=== PATIENT | female | born 1955 | race Caucasian/White ===

== ENCOUNTER 2017-08-09 08:00 | Outpatient (CLI) | payer MEDICARE, MEDICAID ==
[2017-08-09 19:13] LABS: BASOPHILS # (AUTO) 0.1 10^3/uL (0.0-0.1); BASOPHILS % (AUTO) 0.7 %; EOSINOPHILS # (AUTO) 0.2 10^3/uL (0.0-0.7); EOSINOPHILS % (AUTO) 2.3 %; HCT - HEMATOCRIT 43.1 % (37.0-47.0); HGB - HEMOGLOBIN 14.6 g/dL (12.0-16.0); LYMPHOCYTES # (AUTO) 2.2 10^3/uL (1.5-3.5); MEAN CORPUSCULAR HGB CONC 33.7 g/dL (32.0-36.0); MEAN CORPUSCULAR VOLUME 91.9 fL (81.0-99.0); MEAN PLATELET VOLUME 8.1 fL (7.9-10.8); MONOCYTES # (AUTO) 0.5 10^3/uL (0.0-1.0); MONOCYTES % (AUTO) 6.8 %; NEUTROPHILS # (AUTO) 4.7 10^3/uL (1.5-6.6); NEUTROPHILS % (AUTO) 61.2 %; NUCLEATED RED BLOOD CELLS AUTO 0.1 /100WBC; RED BLOOD COUNT 4.69 10^6/uL (4.20-5.40); RED CELL DISTRIBUTION WIDTH 12.8 % (12.0-15.0); UNCORRECTED WHITE BLOOD COUNT 7.7 x10^3/uL; WHITE BLOOD COUNT 7.7 x10^3/uL (4.8-10.8)
[2017-08-09 19:46] LABS: ALBUMIN/GLOBULIN RATIO 1.4 (1.0-2.2); BILIRUBIN,TOTAL 0.9 mg/dL (0.2-1.0); BUN - BLOOD UREA NITROGEN 12 mg/dL (6-20); CALCIUM 9.7 mg/dL (8.5-10.3); CARBON DIOXIDE - CO2 27 mmol/L (21-32); CHLORIDE 104 mmol/L (101-111); CREATININE 0.6 mg/dL (0.4-1.0); GFR - MDRD 102 (>89); GLUCOSE 95 mg/dL (70-100); POTASSIUM 4.1 mmol/L (3.5-5.0); SODIUM 139 mmol/L (135-145); TOTAL PROTEIN 7.8 g/dL (6.7-8.2)
[2017-08-10 19:04] LABS: BILIRUBIN,URINE NEGATIVE (NEGATIVE); PH,URINE 6.5 PH (5.0-7.5)
[2017-08-10 19:53] LABS: UR CULTURE IF IND NOT INDICATED; WBC,URINE 0-3 /HPF (0-5)
== END 2017-08-09 08:01 | disposition home or self-care (01) ==
LOC: LAB.WCP 08:00
PROVIDERS: ATTEND Family Medicine
DX: F19.10 Other psychoactive substance abuse, uncomplicated (principal); F31.9 Bipolar disorder, unspecified; R32 Unspecified urinary incontinence
CPT/HCPCS: 36415; 80053; 81001; 84443; 85025; 87086

== ENCOUNTER 2018-11-04 16:33 | Emergency (ER) | payer MEDICARE, MEDICAID ==
[2018-11-04 16:44] VITALS: BP 148/72
--- NOTE | 2018-11-04 16:59 | ED Physician Documentation ---
History of Present Illness - Stated complaint Stated Complaint: MED REFILL - Chief complaint Chief Complaint: General - History obtained from History obtained from: Patient - History of Present Illness Timing: Yesterday (She ran out of her ADD medication and needs a refill. She has an important function tomorrow and feels like she will be nonfunctional without a refill. The psychiatrist office is closed for the .) Review of Systems Constitutional: reports: Reviewed and negative Cardiac: reports: Reviewed and negative Respiratory: reports: Reviewed and negative Psychiatric: denies: Depressed, Suicidal, Homicidal PD PAST MEDICAL HISTORY - Past Medical History Respiratory: COPD Psych: Depression, Anxiety, Post traumatic stress disorder, Other - Past Surgical History General: Colonoscopy /[employer]: section - Present Medications Home Medications: Ambulatory Orders Medication Instructions Recorded Confirmed Albuterol [Ventolin Hfa] 2 puffs PO TID 11/22/14 11/22/14 Beclomethasone Dipropionate [Qvar] 2 puffs PO BID 11/22/14 11/22/14 Omeprazole [Prilosec] 20 mg PO DAILY 11/22/14 11/22/14 Aripiprazole [Abilify] 1 tab PO DAILY 11/04/18 11/04/18 Dextroamphetamine/Amphetamine 10 mg PO DAILY #5 cap.er.24h 11/04/18 [Dextroamp-Amphet ER 10 mg Cap] Dextroamphetamine/Amphetamine 1 tab PO DAILY 11/04/18 11/04/18 [Dextroamp-Amphetamin 10 mg Tab] buPROPion [Wellbutrin Sr] 1 tab PO BID 11/04/18 11/04/18 - Allergies Allergies/Adverse Reactions: Allergies Allergy/AdvReac Type Severity Reaction Status Date / Time No Known Drug Allergies Allergy Verified 11/04/18 16:44 - Social History Does the pt smoke?: Yes Smoking Status: Current every day smoker Does the pt drink ETOH?: No Does the pt have substance abuse?: Yes - Immunizations Immunizations are current?: Yes PD ED PE NORMAL - Vitals Vital signs reviewed: Yes - General General: Alert and oriented X 3, No acute distress - Derm Derm: Normal color, Warm and dry, No rash - Neuro Neuro: Alert and oriented X 3, Normal speech - Psych Psych: Normal mood, Normal affect Results - Vitals Vitals: Vital Signs - 24 hr 11/04/18 16:40 Temperature 36.5 C Heart Rate 87 Respiratory 16 Rate Blood Pressure 148/72 H O2 Saturation 98 Oxygen O2 Source Room air Departure - Departure Disposition: 01 Home, Self Care Clinical Impression: Medication refill ADD (attention deficit disorder) Qualifiers: Hyperactivity presence: present Attention deficit-hyperactivity disorder type: unspecified Qualified Code(s): F90.9 - Attention-deficit hyperactivity disorder, unspecified type Condition: Good Record reviewed to determine appropriate education?: Yes Prescriptions: Dextroamphetamine/Amphetamine [Dextroamp-Amphet ER 10 mg Cap] 10 mg PO DAILY #5 cap.er.24h Comments: As discussed, all further refills need to come from your primary care physician or psychiatrist. Return for new or worsening issues. Your blood pressure was elevated today on check into the emergency department. This does not mean that you have hypertension, it is a common phenomenon to come to the emergency department and have elevated blood pressure. I recommend that you see your primary care physician within the week to have it rechecked when you are feeling better.
== END 2018-11-04 17:01 | disposition home or self-care (01) ==
LOC: ED 16:33
DX: F90.9 Attention-deficit hyperactivity disorder, unspecified type (principal); R03.0 Elevated blood-pressure reading, without diagnosis of hypertension; F17.200 Nicotine dependence, unspecified, uncomplicated
CPT/HCPCS: 99283

== ENCOUNTER 2019-02-02 10:36 | Outpatient (CLI) | payer MEDICARE, OTHER ==
--- NOTE | 2019-02-02 16:12 | CT Report ---
Reason: PERSONAL HISTORY OF NICOTINE DEPENDENCE Procedure Date: 02/02/2019 Accession Number: [id number] / [id number] Procedure: CT - Low Dose Lung Cancer Screen CPT Code: FULL RESULT: EXAM CT LUNG SCREEN EXAM DATE: 02/02/2019 11:21 AM. HISTORY: 63-year-old patient with [id number]-[id number] smoking history. Currently smoking: Yes. COMPARISON: None. TECHNIQUE: CT examination of the entire thorax without contrast was performed using low-dose technique. Thin section coronal, axial, sagittal and MIP axial images were obtained. In accordance with CT protocol optimization, one or more of the following dose reduction techniques were utilized for this exam: automated exposure control, adjustment of mA and/or KV based on patient size, or use of iterative reconstructive technique. FINDINGS: Nodules: Right upper lobe: 1. 2 mm lateral right upper lobe nodule (series 4, image 31). 2. 2 mm nodule peripheral right upper lobe (series 4, image 32). 3. 2 mm nodule density right upper lobe (series 4, image 47). 4. Small nodule with peripheral groundglass opacity measuring 3 mm (series 4, image 36). Right middle lobe: None. Right lower lobe: None. Left upper lobe: 1. 3 mm peripheral nodular density (series 4, image 33). 2. 2 mm nodular density left upper lobe peripherally (series 4, image 43). Left lower lobe: None. Emphysema: None. Pleura: Unremarkable. Aorta: No aortic aneurysm evident. Mild atherosclerotic calcification present. Mediastinum: Unremarkable. Coronary calcifications: Mild LAD vascular calcification. Other pulmonary findings: None. Other extrapulmonary findings: None. IMPRESSION: Lung-RADS ASSESSMENT CATEGORY: 2 - benign appearance or behavior, less than 1% probability of malignancy. Several tiny pulmonary nodules measuring no more than 3 mm. RECOMMENDATION: Recommended follow up based on Lung-RADS guidelines. RADIA
== END 2019-02-02 10:37 | disposition home or self-care (01) ==
LOC: DI 10:36
PROVIDERS: ATTEND Internal Medicine
DX: Z12.2 Encounter for screening for malignant neoplasm of respiratory organs (principal); F17.210 Nicotine dependence, cigarettes, uncomplicated

== ENCOUNTER 2021-04-24 09:58 | Outpatient (CLI) | payer OTHER ==
--- NOTE | 2021-04-24 12:28 | XRAY Report ---
PROCEDURE: Chest 2 View X-Ray INDICATIONS: COUGH TECHNIQUE: 2 view(s) of the chest. COMPARISON: CT chest without contrast, 02/02/2019. FINDINGS: Surgical changes and devices: None. Lungs and pleura: No pleural effusions or pneumothorax. Lungs are clear. Mediastinum: Mediastinal contours are normal. Heart size is normal. Bones and chest wall: No suspicious bony abnormalities. Soft tissues appear unremarkable. IMPRESSION: No acute cardiopulmonary disease. Reviewed by: Joshua Zuniga MD on 04/24/2021 12:27 PM PDT Approved by: Joshua Zuniga MD on 04/24/2021 12:27 PM PDT Station ID: [id number]
== END 2021-04-24 09:59 | disposition home or self-care (01) ==
LOC: DI.N 09:58
PROVIDERS: ATTEND Physician Assistant
DX: R05 Cough (principal); R06.02 Shortness of breath; J44.9 Chronic obstructive pulmonary disease, unspecified; F17.290 Nicotine dependence, other tobacco product, uncomplicated

== ENCOUNTER 2021-08-04 16:36 | Outpatient (CLI) | payer OTHER | END 2021-08-04 16:37 | disposition home or self-care (01) | LOC: COV 16:36 | PROVIDERS: ATTEND Family Medicine | DX: U07.1 COVID-19 (principal) ==

== ENCOUNTER 2021-11-27 08:00 | Outpatient (CLI) | payer OTHER ==
--- NOTE | 2021-11-27 17:14 | XRAY Report ---
PROCEDURE: Hand 3 View LT INDICATIONS: CONTUSION OF LEFT MIDDLE FINGER TECHNIQUE: 3 views of the hand(s) acquired. COMPARISON: None FINDINGS: Bones: No fractures or dislocations. No suspicious bony lesions. Soft tissues: No suspicious soft tissue calcifications. IMPRESSION: No visualized acute fracture or dislocation. However, occult injury cannot be excluded. Recommend elida rt interval imaging follow-up in 7-10 days as clinically indicated for additional evaluation. Reviewed by: Jennifer Singleton MD on 11/27/2021 5:13 PM PST Approved by: Jennifer Singleton MD on 11/27/2021 5:13 PM [facility] Station ID: [id number]
== END 2021-11-27 23:59 | disposition home or self-care (01) ==
LOC: DI.N 08:00
PROVIDERS: ATTEND Physician Assistant
DX: S60.032A Contusion of left middle finger without damage to nail, initial encounter (principal)

== ENCOUNTER 2021-12-05 09:42 | Outpatient (CLI) | payer OTHER ==
--- NOTE | 2021-12-05 12:07 | XRAY Report ---
PROCEDURE: Finger(s) LT min, x-ray INDICATIONS: CONTUSION OF LEFT MIDDLE FINGER TECHNIQUE: AP hand, 2 views of the left third finger(s) acquired. COMPARISON: 11/27/2021 FINDINGS: Bones: No fractures or dislocations. No suspicious bony lesions. Osteopenia and fracture deformity of distal radius noted. Soft tissues: No suspicious soft tissue calcifications. IMPRESSION: 1. No acute fracture or foreign body 2. Osteopenia and old distal radial fracture deformity, stable Reviewed by: Rod Escobar MD on 12/05/2021 11:05 AM [facility] Approved by: Rod Escobar MD on 12/05/2021 11:05 AM [facility] Station ID: [id number]
== END 2021-12-05 23:59 | disposition home or self-care (01) ==
LOC: DI.N 09:42
PROVIDERS: ATTEND Family Medicine
DX: S60.032D Contusion of left middle finger without damage to nail, subsequent encounter (principal); M85.88 Other specified disorders of bone density and structure, other site; Z87.81 Personal history of (healed) traumatic fracture

== ENCOUNTER 2022-04-22 14:08 | Outpatient (CLI) | payer OTHER ==
--- NOTE | 2022-04-22 16:20 | XRAY Report ---
PROCEDURE: Chest 2 View X-Ray INDICATIONS: COUGH TECHNIQUE: 2 view(s) of the chest. COMPARISON: None. FINDINGS: Surgical changes and devices: None. Lungs and pleura: No pleural effusions or pneumothorax. Lungs are clear. Mediastinum: Mediastinal contours are normal. Heart size is normal. Bones and chest wall: No suspicious bony abnormalities. Soft tissues appear unremarkable. IMPRESSION: No acute cardiopulmonary process demonstrated radiographically. Reviewed by: Robi Hale MD on 04/22/2022 4:19 PM PDT Approved by: Robi Hale MD on 04/22/2022 4:19 PM PDT Station ID: [id number]
== END 2022-04-22 14:09 | disposition home or self-care (01) ==
LOC: DI.N 14:08
PROVIDERS: ATTEND Student in an Organized Health Care Education/Training Program
DX: R05.9 Cough, unspecified (principal)

== ENCOUNTER 2022-05-07 08:06 | Outpatient (CLI) | payer OTHER ==
--- NOTE | 2022-05-07 10:10 | CT Report ---
PROCEDURE: Low Dose Lung Cancer Screen INDICATIONS: PULMONARY NODULE TECHNIQUE: Noncontrast low-dose images were acquired from the pulmonary apices to the posterior costophrenic ang les. Multiplanar MIP reformats were then acquired. For radiation dose reduction, the following was used: automated exposure control, adjustment of mA and/or kV according to patient size. COMPARISON: 02/02/2019 FINDINGS: Image quality: Good. Slight respiratory motion at the lung bases.. Lungs and pleura: Several scattered groundglass lung nodules, posterior right upper lobe, 4/90 measu ring 5 mm, lateral right upper lobe, 4/75 fissuring 3 mm, anterior right upper lobe, 4/122 measuring 2 mm, posterior lateral left upper lobe, 4/81, 3 mm. No other larger nodules or suspicious masses. rways demonstrate mild perihilar bronchial wall thickening. Mild upper lobe emphysematous changes. Th ere is mucus in the left main bronchus. No alveolar consolidations or acute opacities. No pleural eff usion or pleural plaquing. Mediastinum: Heart size is normal. No pericardial effusion. Minor coronary artery calcification. No mediastinal adenopathy by size criteria. Thoracic aorta and central pulmonary arteries are normal i n size. Mild aortic arch calcification. Esophagus is normal in caliber. No hiatal hernia. Bones and chest wall: No suspicious bony lesions. No vertebral body compression fractures. No axil fortino or supraclavicular adenopathy by size criteria. The left thyroid lobe is enlarged. The right is normal. Abdomen: Visualized upper abdomen solid organs and bowel loops appear normal in the absence of contr ast. IMPRESSION: 1. Relatively stable bilateral upper lobe pulmonary nodules as measured on both images during today's review. 2. Lung RADS category 2, benign. 3. Continue annual screening as long as patient meets established criteria. 4. Mild left-sided thyromegaly, stable compared to the prior study. Reviewed by: Courtney Lopez MD on 05/07/2022 10:09 AM PDT Approved by: Courtney Lopez MD on 05/07/2022 10:09 AM PDT Station ID: [id number]
== END 2022-05-07 08:07 | disposition home or self-care (01) ==
LOC: DI 08:06
PROVIDERS: ATTEND Student in an Organized Health Care Education/Training Program
DX: Z12.2 Encounter for screening for malignant neoplasm of respiratory organs (principal); R91.8 Other nonspecific abnormal finding of lung field; E01.0 Iodine-deficiency related diffuse (endemic) goiter

== ENCOUNTER 2022-10-14 14:07 | Outpatient (CLI) | payer MEDICARE, OTHER, MEDICAID ==
--- NOTE | 2022-10-14 20:54 | DEXA Report ---
PROCEDURE: Dexa Spine and/or Hip INDICATIONS: POSTMENOPAUSAL TECHNIQUE: Dual energy x-ray absorptiometry (DXA) was performed on a [employer]. Regions measur ed are the AP Spine, femoral neck, and if needed forearm. COMPARISON: None. FINDINGS: Lumbar Spine: Bone Mineral Density 1.084 g/cm/cm,T score -0.8. Left Femoral Neck: Bone Mineral Density 0.810 g/cm/cm, T score -1.6. Left Hip: Bone Mineral Density 0.825 g/cm/cm,T score -1.4. (T score greater or equal to -1.0: NORMAL) (T score from -1.1 to -2.4: OSTEOPENIA) (T score less than or equal to -2.5 to: OSTEOPOROSIS) Impression: Osteopenia. Patients with diagnosis of osteoporosis or osteopenia should have regular bone mineral density assess ment. For those eligible for Medicare, routine testing is allowed once every 2 years. Testing frequ ency can be increased for patients who have rapidly progressing disease or for those who are receivin g medical therapy to restore bone mass. Reviewed by: Pablo Garza MD on 10/14/2022 8:52 PM PST Approved by: Pablo Garza MD on 10/14/2022 8:52 PM PST Station ID: [id number]
== END 2022-10-14 14:08 | disposition home or self-care (01) ==
LOC: DI 14:07
PROVIDERS: ATTEND Nurse Practitioner
DX: M85.89 Other specified disorders of bone density and structure, multiple sites (principal); Z78.0 Asymptomatic menopausal state

== ENCOUNTER 2022-10-14 14:08 | Outpatient (CLI) | payer MEDICARE, MEDICAID ==
--- NOTE | 2022-10-22 11:37 | Mammography Report ---
BILATERAL DIGITAL SCREENING MAMMOGRAM 3D/2D: 10/14/2022 CLINICAL: Routine screening. No prior exams were available for comparison. Both breasts are heterogeneously dense, which may obscure small masses (category c / 51-75% glandular tissue). No significant masses, calcifications, or other findings are seen in either breast. IMPRESSION: NEGATIVE There is no mammographic evidence of malignancy. A 1 year screening mammogram is recommended. Based on the Tyrer Cuzick model (a risk assessment model) the patients lifetime risk is 6.4% and her 10 year risk is 3.1%. According to the ACR, ACS, and NCCN guidelines, an annual breast MRI exam mariam g with mammogram is recommended if the patients lifetime risk is 20% or greater. This exam was interpreted at Station ID: [id number]. NOTE: For mammograms, a report in lay terms will be sent to the patient. Approximately 15% of breast malignancies will not be visualized mammographically. In the management of a palpable breast mass, a negative mammogram must not discourage biopsy of a clinically suspicious lesion. Electronically Signed By: Ernst Randolph M.D. slc/:10/21/2022 17:20:56 ACR BI-RADS Category 1: Negative 3341F PARENCHYMAL PATTERN: (D) - The breast(s) demonstrate(s) heterogeneously dense fibroglandular fermin hawkins. BI-RADS CATEGORY: (1) - 1 RECOMMENDATION: (ANNUAL) - Recommend routine annual screening mammography. [id number] 1 year screening LATERALITY: (B)
== END 2022-10-14 14:09 | disposition home or self-care (01) ==
LOC: DI 14:08
PROVIDERS: ATTEND Nurse Practitioner
DX: Z12.31 Encounter for screening mammogram for malignant neoplasm of breast (principal)

== ENCOUNTER 2022-11-08 08:00 | Outpatient (CLI) | payer MEDICARE, MEDICAID ==
[2022-11-08 11:49] LABS: BASOPHILS % (AUTO) 0.5 %; EOSINOPHILS # (AUTO) 0.3 10^3/uL (0.0-0.7); EOSINOPHILS % (AUTO) 4.1 %; HCT - HEMATOCRIT 44.3 % (37.0-47.0); HGB - HEMOGLOBIN 14.7 g/dL (12.0-16.0); LYMPHOCYTES # (AUTO) 2.1 10^3/uL (1.5-3.5); LYMPHOCYTES % (AUTO) 33.5 %; MEAN CORPUSCULAR HEMOGLOBIN 30.1 pg (27.0-31.0); MEAN CORPUSCULAR HGB CONC 33.2 g/dL (32.0-36.0); MEAN CORPUSCULAR VOLUME 90.8 fL (81.0-99.0); MEAN PLATELET VOLUME 9.2 fL (7.9-10.8); MONOCYTES # (AUTO) 0.7 10^3/uL (0.0-1.0); MONOCYTES % (AUTO) 10.6 %; NEUTROPHILS # (AUTO) 3.2 10^3/uL (1.5-6.6); PLT - PLATELET COUNT 352 10^3/uL (130-450); RED BLOOD COUNT 4.88 10^6/uL (4.20-5.40); RED CELL DISTRIBUTION WIDTH 12.6 % (12.0-15.0); WHITE BLOOD COUNT 6.4 x10^3/uL (4.8-10.8)
[2022-11-08 12:39] LABS: THYROID STIMULATING HORMONE 1.5 uIU/mL (0.34-5.60)
[2022-11-08 14:00] LABS: ALBUMIN 3.9 g/dL (3.2-5.5); ALBUMIN/GLOBULIN RATIO 1.2 (1.0-2.2); ALKALINE PHOSPHATASE 64 IU/L (42-121); ALT ALANINE AMINOTRANSFERASE 21 IU/L (10-60); AST ASPARTATE AMINOTRANSFERASE 20 IU/L (10-42); BILIRUBIN,TOTAL 0.6 mg/dL (0.2-1.0); BUN - BLOOD UREA NITROGEN 14 mg/dL (6-20); CALCIUM 9.3 mg/dL (8.5-10.3); CARBON DIOXIDE - CO2 27 mmol/L (21-32); CHLORIDE 103 mmol/L (101-111); CHOL/HDL RATIO 5.2 (<4.4); CHOLESTEROL 241 mg/dL; CREATININE 0.6 mg/dL (0.4-1.0); GFR - MDRD 100 (>89); GLUCOSE 93 mg/dL (70-100); HDL CHOLESTEROL 46 mg/dL; LDL CHOLESTEROL,CALCULATED 170 mg/dL; LDL/HDL RATIO 3.7 (<4.4); POTASSIUM 4.1 mmol/L (3.5-5.0); SODIUM 138 mmol/L (135-145); TOTAL PROTEIN 7.2 g/dL (6.7-8.2); TRIGLYCERIDES 126 mg/dL; VLDL CHOLESTEROL 25 mg/dL
== END 2022-11-08 08:01 | disposition home or self-care (01) ==
LOC: LAB.N 08:00
PROVIDERS: ATTEND Nurse Practitioner
DX: J44.9 Chronic obstructive pulmonary disease, unspecified (principal); Z13.220 Encounter for screening for lipoid disorders; F41.9 Anxiety disorder, unspecified
CPT/HCPCS: 36415; 80053; 80061; 83721; 84443; 85025

== ENCOUNTER 2023-06-02 11:49 | Outpatient (CLI) | payer MEDICARE, MEDICAID ==
--- NOTE | 2023-06-02 14:59 | CT Report ---
PROCEDURE: Low Dose Lung Cancer Screen INDICATIONS: NICOTINE ABUSE TECHNIQUE: A CT scan of the chest was performed. Intravenous contrast media was not administered. Images were re corded and evaluated at appropriate window settings. Reformats: axial MIP of the chest, coronal and s agittal. For radiation dose reduction, the following was used: automated exposure control, adjustment of mA and/or kV according to patient size. COMPARISON: CT chest, 05/07/2022. FINDINGS: Image quality: Excellent. Lungs and pleura: Small nodules are unchanged in size. Reference nodules are listed in following: Nodule 1: 4 mm; right middle lobe; series 4 image 130. Nodule 2: 4 mm; right major fissure; series 4 image 25. No pleural effusions. No pneumothorax. No suspicious pulmonary nodules which require follow up. Mediastinum: Heart size is normal. No pericardial effusion. Moderate coronary calcification. No large vessel abnormality. No mediastinal adenopathy by size criteria. Small hiatal hernia. Chest wall and lower neck: Thyroid is enlarged and heterogeneous but unchanged. No axillary or suprac lavicular adenopathy by size. Bones: No aggressive osseous abnormality. Upper Abdomen: Unremarkable. IMPRESSION: 1. Stable lung nodules. Lung RADs: 2 - Benign. Recommendation: Continue annual screening in 12 Months with LDCT. 2. Enlarged thyroid gland with heterogeneous attenuation, unchanged. Reviewed by: Joshua Zuniga MD on 06/02/2023 2:58 PM PDT Approved by: Joshua Zuniga MD on 06/02/2023 2:58 PM PDT Station ID: [id number]
== END 2023-06-02 11:50 | disposition home or self-care (01) ==
LOC: DI 11:49
PROVIDERS: ATTEND Nurse Practitioner
DX: Z12.2 Encounter for screening for malignant neoplasm of respiratory organs (principal); R91.8 Other nonspecific abnormal finding of lung field; F17.210 Nicotine dependence, cigarettes, uncomplicated

== ENCOUNTER 2023-06-30 08:00 | Outpatient (CLI) | payer MEDICARE, MEDICAID | END 2023-06-30 23:59 | disposition home or self-care (01) | LOC: LAB.N 08:00 | PROVIDERS: ATTEND Registered Nurse | DX: J34.89 Other specified disorders of nose and nasal sinuses (principal); Z20.822 Contact with and (suspected) exposure to COVID-19 ==

== ENCOUNTER 2023-11-15 08:43 | Outpatient (CLI) | payer MEDICARE, MEDICAID ==
[2023-11-15 12:09] LABS: BASOPHILS # (AUTO) 0.1 10^3/uL (0.0-0.1); BASOPHILS % (AUTO) 0.7 %; EOSINOPHILS # (AUTO) 0.2 10^3/uL (0.0-0.7); EOSINOPHILS % (AUTO) 3.1 %; HCT - HEMATOCRIT 43.6 % (37.0-47.0); HGB - HEMOGLOBIN 14.7 g/dL (12.0-16.0); LYMPHOCYTES % (AUTO) 28.1 %; MEAN CORPUSCULAR HEMOGLOBIN 31.1 pg (27.0-31.0); MEAN CORPUSCULAR HGB CONC 33.7 g/dL (32.0-36.0); MEAN CORPUSCULAR VOLUME 92.2 fL (81.0-99.0); MEAN PLATELET VOLUME 9.1 fL (7.9-10.8); MONOCYTES # (AUTO) 0.6 10^3/uL (0.0-1.0); MONOCYTES % (AUTO) 8.6 %; NEUTROPHILS # (AUTO) 4.1 10^3/uL (1.5-6.6); NEUTROPHILS % (AUTO) 59.2 %; PLT - PLATELET COUNT 364 10^3/uL (130-450); RED BLOOD COUNT 4.73 10^6/uL (4.20-5.40); RED CELL DISTRIBUTION WIDTH 12.5 % (12.0-15.0)
[2023-11-15 12:21] LABS: BILIRUBIN,URINE NEGATIVE (NEGATIVE); GLUCOSE, URINE (UA) NEGATIVE (NEGATIVE); KETONES,URINE (UA) NEGATIVE (NEGATIVE); LEUKOCYTE ESTERASE, URINE NEGATIVE (NEGATIVE); NITRITE,URINE NEGATIVE (NEGATIVE); OCCULT BLOOD,URINE MODERATE (NEGATIVE); PROTEIN,URINE NEGATIVE (NEGATIVE); UROBILINOGEN,URINE 0.2 (NORMAL) E.U./dL (NORMAL)
[2023-11-15 12:26] LABS: CLARITY,URINE CLOUDY (CLEAR)
[2023-11-15 12:30] LABS: AMORPHOUS SEDIMENT,UR Moderate /LPF; BACTERIA,URINE Few /HPF (None Seen); RBC,URINE 0-5 /HPF (0-5); SQUAMOUS EPITHELIAL CELL,UR FEW Squamous (<= Few); WBC,URINE 0-3 /HPF (0-5)
[2023-11-15 12:32] LABS: AMPHETAMINE SCREEN,URINE POSITIVE (NEGATIVE); BARBITURATE SCREEN,UR NEGATIVE (NEGATIVE); BENZODIAZEPINES SCREEN, URINE NEGATIVE (NEGATIVE); BUPRENORPHINE SCREEN, URINE NEGATIVE (NEGATIVE); COCAINE SCREEN URINE NEGATIVE (NEGATIVE); METHADONE SCREEN, URINE NEGATIVE (NEGATIVE); METHAMPHETAMINES SCREEN, URINE NEGATIVE (NEGATIVE); OPIATE SCREEN, URINE NEGATIVE (NEGATIVE); OXYCODONE SCREEN, URINE NEGATIVE (NEGATIVE); THC CANNABINOID SCREEN, URINE NEGATIVE (NEGATIVE); TRICYCLIC ANTIDEPRESSANT,URINE NEGATIVE (NEGATIVE)
[2023-11-15 12:48] LABS: ALBUMIN 4.3 g/dL (3.2-5.5); ALBUMIN/GLOBULIN RATIO 1.6 (1.0-2.2); BILIRUBIN,TOTAL 0.4 mg/dL (0.2-1.0); CALCIUM 9.8 mg/dL (8.5-10.3); CREATININE 0.6 mg/dL (0.6-1.3); POTASSIUM 4.1 mmol/L (3.5-4.5)
== END 2023-11-15 08:44 | disposition home or self-care (01) ==
LOC: LAB.N 08:43
PROVIDERS: ATTEND Nurse Practitioner
DX: R10.9 Unspecified abdominal pain (principal); F14.11 Cocaine abuse, in remission
CPT/HCPCS: 36415; 80053; 80306; 81001; 82150; 82977; 83690; 85025; 87086

== ENCOUNTER 2023-11-17 08:00 | Outpatient (CLI) | payer MEDICARE, MEDICAID ==
[2023-11-17 18:36] LABS: BILIRUBIN,URINE NEGATIVE (NEGATIVE); GLUCOSE, URINE (UA) NEGATIVE (NEGATIVE); KETONES,URINE (UA) NEGATIVE (NEGATIVE); LEUKOCYTE ESTERASE, URINE NEGATIVE (NEGATIVE); NITRITE,URINE NEGATIVE (NEGATIVE); OCCULT BLOOD,URINE SMALL (NEGATIVE); PROTEIN,URINE NEGATIVE (NEGATIVE); UROBILINOGEN,URINE 0.2 (NORMAL) E.U./dL (NORMAL)
[2023-11-17 19:19] LABS: CLARITY,URINE CLEAR (CLEAR)
[2023-11-17 19:20] LABS: BACTERIA,URINE Rare /HPF (None Seen); RBC,URINE 0-5 /HPF (0-5); SQUAMOUS EPITHELIAL CELL,UR RARE Squamous (<= Few); WBC,URINE 0-3 /HPF (0-5)
== END 2023-11-17 23:59 | disposition home or self-care (01) ==
LOC: LAB.WCP 08:00
PROVIDERS: ATTEND Nurse Practitioner
DX: R31.9 Hematuria, unspecified (principal)
CPT/HCPCS: 81001

== ENCOUNTER 2024-06-04 17:20 | Outpatient (CLI) | payer MEDICARE, MEDICAID ==
--- NOTE | 2024-06-05 13:15 | CT Report ---
PROCEDURE: Lung Cancer Screen INDICATIONS: NICOTINE ABUSE TECHNIQUE: A CT scan of the chest was performed. Intravenous contrast media was not administered. Images were re corded and evaluated at appropriate window settings. Reformats: axial MIP of the chest, coronal and s agittal. For radiation dose reduction, the following was used: automated exposure control, adjustment of mA and/or kV according to patient size. COMPARISON: 06/02/2023, 05/07/2022, 02/02/2019 FINDINGS: Image quality: Excellent. Prior cancer history: None given. Lungs and pleura: Pulmonary nodules are seen: Right middle lobe anteriorly, 2 mm, series 4 image 44, decreased from prior The previously described nodule along the right major fissure is definitely seen. Additional tiny pulmonary nodules are seen elsewhere, which are not regarded to be suspicious. No pleural effusions. No pneumothorax. Mediastinum: Heart size is normal. No pericardial effusion. No large vessel abnormality. Atherosclero tic calcification is seen. No mediastinal adenopathy by size criteria. Chest wall and lower neck: A 3.7 cm left thyroid nodule can be seen. No axillary or supraclavicular a denopathy by size. Bones: No aggressive osseous abnormality. Degenerative There is accentuated thoracic kyphosis. Upper Abdomen: Unremarkable. IMPRESSION: No suspicious pulmonary nodule can be seen. 3.7 cm left thyroid nodule noted. Clinically appropriate, please consider a follow-up thyroid ultraso und for further evaluation. Lung RAD: 2 - Benign. Recommendation: Recommend annual low-dose CT chest screening examinations, as long as the patient anju ts the published screening criteria. Reviewed by: Regan Mcdaniel MD on 06/05/2024 12:14 PM [facility] Approved by: Regan Mcdaniel MD on 06/05/2024 12:14 PM [facility] Station ID: [id number]
== END 2024-06-04 17:21 | disposition home or self-care (01) ==
LOC: DI 17:20
PROVIDERS: ATTEND Nurse Practitioner
DX: Z12.2 Encounter for screening for malignant neoplasm of respiratory organs (principal); E04.1 Nontoxic single thyroid nodule; F17.200 Nicotine dependence, unspecified, uncomplicated

== ENCOUNTER 2024-06-16 16:05 | Outpatient (CLI) | payer MEDICARE, MEDICAID ==
--- NOTE | 2024-06-17 00:08 | Ultrasound Report ---
PROCEDURE: Soft Tissue Head or Neck INDICATIONS: THYROID NODULE TECHNIQUE: Real-time scanning was performed of the thyroid gland, with image documentation. COMPARISON: CT chest dated 06/04/2024 FINDINGS: Right: Thyroid lobe measures 4.8 x 2.8 x 1.4 cm. Left: Thyroid lobe measures 6.3 x 3.1 x 2.6 cm Isthmus: 0.3 cm thick. Echotexture: Heterogeneous. Nodule number: One Location: Right inferior thyroid lobe Size: 1.4 x 1.6 x 1.2 cm. Composition: Solid (2 points). Echogenicity: Hyperechoic (1 point). Shape: wider than tall (0 points). Margins: Smooth (0 points). Echogenic foci: None (0 points). Total points: 3 ACR TI-RADS category: TI-RADS 3: Mildly suspicious. Nodule number: Two Location: Left medial/inferior Size: 2.0 x 1.9 x 2.0 cm. Composition: Solid (2 points). Echogenicity: Hyperechoic (1 point). Shape: wider than tall (0 points). Margins: Smooth (0 points). Echogenic foci: None (0 points). Total points: 3 ACR TI-RADS category: TI-RADS 3: Mildly suspicious. Nodule number: Three Location: Left lateral inferior Size: 3.5 x 2.9 x 2.3 cm. Composition: Solid (2 points). Echogenicity: Hypoechoic (2 points). Shape: wider than tall (0 points). Margins: Smooth (0 points). Echogenic foci: None (0 points). Total points: 4 ACR TI-RADS category: TI-RADS 4: Moderately suspicious. IMPRESSION: Multiple bilateral thyroid nodules as described above. TI-RADS 3 (mildly suspicious) nodules measuring up to 1.6 cm on the right and 2.0 cm on the left. Fol low-up thyroid ultrasound in one year. TI-RADS 4 (moderately suspicious) left thyroid nodule measuring up to 3.5 cm. Finding needs consensus criteria for fine-needle aspiration. ACR TI-RADS definitions and recommendations: TI-RADS 1 (benign): 0 points. FNA not needed. TI-RADS 2 (not suspicious): 2 points. FNA not needed. TI-RADS 3 (mildly suspicious): 3 points. "FNA if 2.5 cm or larger, follow up if 1.5 cm or larger (at 1, 3, and 5 years). TI-RADS 4 (moderately suspicious): 4-6 points. "FNA if 1.5 cm or larger, follow up if 1 cm or larger (at 1, 2, 3, and 5 years). TI-RADS 5 (highly suspicious): 7 points or more. "FNA if 1 cm or larger, follow up if 0.5 cm or larger (every year for 5 years). Reviewed by: Ant Bowles MD on 06/17/2024 12:06 AM PDT Approved by: Ant Bowles MD on 06/17/2024 12:06 AM PDT Station ID: [id number]
== END 2024-06-16 16:06 | disposition home or self-care (01) ==
LOC: DI 16:05
PROVIDERS: ATTEND Nurse Practitioner
DX: E04.2 Nontoxic multinodular goiter (principal)

== ENCOUNTER 2024-07-20 09:49 | Outpatient (CLI) | payer MEDICARE, MEDICAID ==
[2024-07-20] MEDS ORDERED: LIDOCAINE-MPF 1% 5 ML VIAL ONE (10:39)
[2024-07-20] MEDS: LIDOCAINE-MPF 1% 5 ML VIAL TD ONE (15:46)
--- NOTE | 2024-07-23 09:23 | Ultrasound Report ---
PROCEDURE: FNA Bx w/US Gdn 1st Les INDICATIONS: THYROID NODULE TECHNIQUE: The indications, alternatives, benefits, risks, and complications of the procedure were explained to the patient. Written informed consent was obtained and placed in the chart. The area of interest wa s examined sonographically and a site was chosen for ultrasound guided percutaneous sampling. The sk in was prepared and draped in the usual fashion, and anesthetized with 1% lidocaine infiltrated from the skin down to the lesion. Multiple passes were then performed, with contents emptied into an appr [facility] pathology specimen container. A bandage was applied to the area of access at completion of t he study. COMPARISON: Thyroid ultrasound 06/16/2024. FINDINGS: Location(s) of lesion(s) sampled: Left inferior lateral nodule (previously described as nodule #3 on 06/16/2024 report) [place]: 3 x 22 gauge hypodermic needles and 3 x 25 gauge hypodermic needles. Number of passes: 6 Medications: 1% lidocaine for local anaesthesia. Complications: None. IMPRESSION: Successful ultrasound-guided left thyroid nodule fine needle aspiration, with cytology results femi dubois Reviewed by: Brea Hillman MD, PhD on 07/23/2024 9:22 AM PDT Approved by: Brea Hillman MD, PhD on 07/23/2024 9:22 AM PDT Station ID: [id number]
== END 2024-07-20 09:50 | disposition home or self-care (01) ==
LOC: DI 09:49
PROVIDERS: ATTEND Nurse Practitioner
DX: E04.2 Nontoxic multinodular goiter (principal)
CPT/HCPCS: 10005